=== PATIENT | male | born 1980 | race Hispanic/Latino ===

== ENCOUNTER → 2019-02-10 | Day surgery (SDC) | payer BC ==
[~2019-02-10] MED LIST: ASPIR 8181 MG PO; CLOBETASOL PROP15 G1 TOP; DOXYCYCLINE HY100 MG PO; FENTANYL CITRATE/PF 100MCG/2 ML INJ ONE; GLUCAGON FOR INJ 1 MG VIAL ONE; HYOSCYAMINE 0.125 MG TAB ONE; LIDOCAINE HCL 2% LOCAL INJ 5 ML SDV VIAL INJ ONE; METOCLOPRAMIDE HCL 10 MG/2ML VIAL ONE; MIDAZOLAM HCL 2 MG/2 ML VIAL ONE; NEXIUM20 MG PO; PROPOFOL IV EMULSION 10 MG/ML 20 ML VIAL ONE; PROPOFOL IV EMULSION 10 MG/ML 50 ML VIAL ONE; VIT D2 PO
--- OUTSIDE RECORDS SUMMARY | 2019-02-10 10:30 | XMS REPORT ---
Author Author [facility] Address Unknown Phone Unavailable Care Team Providers Care Installation Technician Name Role Phone Unavailable Unavailable Payers Payer Name Policy Type Policy Number Effective Date Expiration Date Problems This patient has no known problems. Allergies, Adverse Reactions, Alerts Allergy Name Allergy Type Status Severity Reaction(s) Onset Date Inactive Date Treating Clinician Comments No Known Allergies DA Active U 2019-02-05 00:00:00 Medications This patient has no known medications.
--- NOTE | 2019-02-10 16:21 | Operative Report ---
DATE OF PROCEDURE: 02/10/2019 SURGEON: Dell Doyle MD PROCEDURES: EGD with biopsies and a colonoscopy with polypectomy and biopsies. INDICATION FOR EGD: Heartburn, indigestion. INDICATIONS FOR COLONOSCOPY: Rectal bleeding, personal history of colon polyps. MEDICATIONS: The patient was done under MAC, please see anesthesiologist's note. PROCEDURE IN DETAIL: With the patient in the left lateral decubitus position, a flexible fiberoptic Olympus gastroscope was introduced into the esophagus under direct visualization without any difficulty. There was some patchy erythema noted in distal esophagus. An approximately 6 mm polypoid lesion was noted in the hiatal hernia sac and that was biopsied. The scope was then advanced into the stomach traversing a small hiatal hernia and the mucosa overlying the antrum and the body revealed some patchy erythema and [id number] edema, and biopsies were obtained and sent to stain for H. pylori. There was some minute submucosal nodule in the antrum that was biopsied. Pylorus was of normal contour and shape, it was intubated with ease and the scope was advanced all the way to the second portion of the duodenum. Biopsies were obtained from the proximal second portion and the duodenal bulb to rule out sprue. The scope was then withdrawn back into the stomach and retroflexed, and mucosa overlying the fundus and the cardia appeared to be within normal limits. The scope was then straightened out, it was subsequently withdrawn, and the patient tolerated the procedure well. IMPRESSION: 1. Distal esophagitis. 2. Approximately 6 mm polypoid lesion, hiatal hernia sac, biopsied. 3. Small sliding hiatal hernia. 4. Gastritis, biopsied, biopsies sent to stain for Helicobacter pylori. 5. Submucosal nodule, antrum, biopsied. 6. Rule out sprue. PLAN: Follow up histology. Initiate Protonix 40 mg 1 p.o. q.a.m. before meals. The patient was then turned around and after adequate lubrication of the anal canal, a flexible fiberoptic Olympus colonoscope was inserted into the rectum with ease and advanced all the way to the cecum. Mucosa overlying the cecum appeared to be within normal limits. The scope was then withdrawn slowly and 2 polyps were noted in the proximal ascending colon. One was removed per cold snare polypectomy and the other polyp by cold biopsy forceps. The rest of the ascending, transverse, and descending grossly appeared to be within normal limits. Some diverticular disease was noted in the distal descending and the sigmoid colon. One polyp was removed per cold biopsy forceps from the sigmoid and 2 polyps were also removed per the cold biopsy forceps from the rectum. The mucosa overlying the rectum revealed some patchy [id number] inflammatory changes and biopsies were obtained. The scope was then retroflexed into the distal rectum and the area around the dentate line was inspected carefully and some internal hemorrhoids were noted without active bleeding or stigmata of recent hemorrhage. The scope was then straightened out, it was subsequently withdrawn, and the patient tolerated the procedure well. A small anal fissure was felt on the rectal exam at 6 o'clock with the patient in the supine position. IMPRESSION: 1. Ascending colon polyps x2, one cold snared, one removed per cold biopsy forceps. 2. Diverticulosis. 3. Sigmoid colon polyp x1, removed per cold biopsy forceps. 4. Rectal polyps x2, cold biopsies. 5. Proctitis, biopsied. 6. Internal hemorrhoids, none actively bleeding. 7. Anal fissure. PLAN: Follow up histology. Initiate high-fiber, low-fat diet. Initiate high-fiber supplement. Start Anucort-HC suppositories 1 b.i.d. x10 days and p.r.n. The patient might benefit from a followup colonoscopy in 3 years. Dell Doyle MD [facility] – [place]ADI /[id number] cc: Alexis Lemus MD
== END | disposition home or self-care (01) ==
LOC: OR 10:20
PROVIDERS: ATTEND Internal Medicine Gastroenterology
DX: K29.50 Unspecified chronic gastritis without bleeding (principal); D12.8 Benign neoplasm of rectum; K31.7 Polyp of stomach and duodenum; K20.9 Esophagitis, unspecified; K21.9 Gastro-esophageal reflux disease without esophagitis; K44.9 Diaphragmatic hernia without obstruction or gangrene; K60.2 Anal fissure, unspecified; K31.89 Other diseases of stomach and duodenum; K57.30 Diverticulosis of large intestine without perforation or abscess without bleeding; K62.89 Other specified diseases of anus and rectum; K64.8 Other hemorrhoids; I45.10 Unspecified right bundle-branch block; I10 Essential (primary) hypertension; F41.9 Anxiety disorder, unspecified; Z01.810 Encounter for preprocedural cardiovascular examination; Z79.82 Long term (current) use of aspirin; Z85.528 Personal history of other malignant neoplasm of kidney
CPT/HCPCS: 43239; 45380; 45385; 93005; J1610; J2001; J2250; J2704 ×2; J2765; J3010; 45378